=== PATIENT | female | born 1950 | race African-American/Black ===

== ENCOUNTER 2018-07-16 14:18 | Inpatient (IN) | payer MEDICARE, MEDICAID ==
[~2018-07-16] VITALS: Ht 162.6 cm; Wt 119.7 kg
[~2018-07-16 14:18] MED LIST: ALPR0.5T PO; AMLO5TAB88 PO; ASPI-1079 PO; ATOR20TA PO; BREO ELLIPTA INH; CALCIUM CARBONATE; DOCU250C89 PO; FURO80TA87 PO; GUAI473S55 PO; HYDR-4009 PO; INCRUSE INH; LEVA15HF4 IH; LEVVL SQ; LIRA0.6P2 SUBCUT; PREDNISONE PO; PREN-88 PO; VALS80TA2 PO
[2018-07-16] MEDS ORDERED: IPRATROPIUM BROMIDE (0.02%) 0.5MG/2.5ML NEB HHN STA (17:04)
[2018-07-16] MEDS ORDERED: ALBUTEROL (0.083%) 2.5MG/3ML NEB HHN STA (17:04)
[2018-07-16] MEDS ORDERED: METHYLPREDNISOLONE SOD SUCC 125 MG/2 ML VIAL IV STA (17:04)
[2018-07-16] MEDS ORDERED: LEVOFLOXACIN 750MG PREMIX 150 ML IV ONE (17:15)
[2018-07-16] MEDS ORDERED: SODIUM CHLORIDE 0.9% 1000ML BAG (SEPSIS BOLUS) IV ONE (17:15)
[2018-07-16] MEDS ORDERED: ASPIRIN 81MG TABLET PO ONE (17:15)
[2018-07-16 17:47] LABS: BASOPHILS % 0.9 % (0.0-2.0); EOSINOPHILS % 1.8 % (0.0-5.0); HEMATOCRIT. 37.9 % (36.0-48.0); HEMOGLOBIN. 12.8 g/dL (12.0-16.0); LYMPHOCYTES % 39.2 % (20.0-50.0); MEAN CORPUSCULAR HEMOGLOBIN 27.4 pg (28.0-32.0); MEAN CORPUSCULAR VOLUME 81.4 fL (81.0-99.0); MEAN PLATELET VOLUME 8.1 fl (7.4-10.4); MONOCYTES % 6.4 % (2.0-8.0); NEUTROPHILS % 51.7 % (40.0-76.0); PLATELET 277 x1000/uL (130-400); RED BLOOD CELL COUNT 4.66 mill/uL (4.2-5.4); RED CELL DISTRIBUTION WIDTH 13.4 % (11.6-14.6)
[2018-07-16 17:52] LABS: PARTIAL THROMBOPLASTIN TIME 23.3 sec (23.4-31.0); PROTHROMBIN TIME 10.4 sec (9.1-11.1)
[2018-07-16 17:56] LABS: CHLORIDE 104 mEq/L (98-107)
[2018-07-16] MEDS: NITROGLYCERIN 0.4MG TABLET SL SL PRN ×2 (18:32→20:30)
[2018-07-16 18:43] LABS: CLARITY URINE CLEAR (CLEAR); COLOR URINE YELLOW (YELLOW); KETONES URINE NEGATIVE (NEGATIVE); LEUKOCYTE ESTERASE URINE NEGATIVE (NEGATIVE); NITRITE URINE NEGATIVE (NEGATIVE); OCCULT BLOOD URINE NEGATIVE (NEGATIVE); PH URINE 7.5 (4.5-8.0); PROTEIN URINE NEGATIVE (NEGATIVE); SPECIFIC GRAVITY URINE 1.005 (1.005-1.030); UROBILINOGEN URINE 0.2 E.U./dL (0.2-1.0)
[2018-07-17] MEDS: NITROGLYCERIN 0.4MG TABLET SL SL PRN (03:46)
[2018-07-17] MEDS ORDERED: HYDROCODONE/ACETAMINOPHEN 5/325MG TABLET PO ONE (04:00)
[2018-07-17 09:00] VITALS: BP 161/76
[2018-07-17] MEDS ORDERED: ACETAMINOPHEN 325MG TABLET PO PRN (09:30)
[2018-07-17] MEDS ORDERED: CLONIDINE 0.1MG TABLET PO PRN (09:30)
[2018-07-17] MEDS: IPRATROPIUM/ALBUTEROL 0.5-3(2.5)MG/3ML NEB HHN SCH ×4 (10:38→20:56)
[2018-07-17 10:42] LABS: BG BASE EXCESS -1.2 mmol/L (-2.0-2.0); BG CARBOXYHEMOGLOBIN 0.1 % (0.5-1.5); BG DEOXYHEMOGLOBIN 1.8 % (0.0-5.0); BG FRACTION INSPIRED OXYGEN 28; BG HCO3 ACT 21.7 mmol/L (22.0-26.0); BG METHEMOGLOBIN 0.2 % (0.0-1.5); BG OXYGEN SATURATION 98.2 % (92.0-98.5); BG OXYHEMOGLOBIN 97.9 % (94.0-97.0); BG PCO2 30.6 mmHg (35.0-45.0); BG PH 7.468 (7.350-7.450); BG PO2 115.2 mmHg (75.0-100.0); BG SAMPLE SITE RIGHT RADIAL; BG VENT MODE NASAL CANNULA
[2018-07-17] MEDS ORDERED: LEVOFLOXACIN 500MG PREMIX 100 ML IV SCH (11:00)
[2018-07-17] MEDS ORDERED: TRAMADOL 50MG TABLET PO PRN (12:15)
[2018-07-17] MEDS: CHOLECALCIFEROL (D3) 1000 UNIT TABLET PO SCH (12:46)
[2018-07-17] MEDS: AMLODIPINE 5MG TABLET PO SCH (12:47)
[2018-07-17] MEDS: LOSARTAN POTASSIUM 50 MG TABLET PO SCH (12:47)
[2018-07-17] MEDS: ENOXAPARIN 30MG/0.3ML SYR SUBCUT SCH ×2 (12:48→21:02)
[2018-07-17] MEDS: TRAMADOL 50MG TABLET PO PRN ×2 (12:49→21:04)
[2018-07-17 16:00] VITALS: BP 108/51
[2018-07-17] MEDS ORDERED: METHYLPREDNISOLONE SOD SUCC 125 MG/2 ML VIAL IV NR (16:00)
[2018-07-17 17:06] VITALS: BP 105/51
[2018-07-17 20:00] VITALS: BP 125/54
[2018-07-17] MEDS: ATORVASTATIN CALCIUM 20MG TABLET PO SCH (21:02)
[2018-07-17] MEDS: ZOLPIDEM TARTRATE 5MG TABLET PO PRN (21:19)
[2018-07-17] MEDS ORDERED: INSULIN GLARGINE UD 100 UNITS/ML SYR SUBCUT SCH (22:00)
[2018-07-18] VITALS: BP 126/62
[2018-07-18] MEDS: METHYLPREDNISOLONE SOD SUCC 40 MG/ML VIAL IV SCH ×3 (00:45→15:53)
[2018-07-18] MEDS: IPRATROPIUM/ALBUTEROL 0.5-3(2.5)MG/3ML NEB HHN SCH ×6 (00:50→21:22)
[2018-07-18 04:00] VITALS: BP 120/52
[2018-07-18] MEDS ORDERED: DEXTROSE 50% WATER 50ML SYRINGE IV PRN ×2 (07:30→13:45)
[2018-07-18] MEDS: INSULIN LISPRO 100 UNITS/ML SUBCUT SCH ×4 (07:50→20:41)
[2018-07-18 08:00] VITALS: BP 138/55
[2018-07-18] MEDS: CHOLECALCIFEROL (D3) 1000 UNIT TABLET PO SCH (09:23)
[2018-07-18] MEDS: AMLODIPINE 5MG TABLET PO SCH (09:24)
[2018-07-18] MEDS: LOSARTAN POTASSIUM 50 MG TABLET PO SCH (09:25)
[2018-07-18] MEDS: ENOXAPARIN 30MG/0.3ML SYR SUBCUT SCH ×2 (09:26→20:41)
[2018-07-18] MEDS: TRAMADOL 50MG TABLET PO PRN ×2 (10:05→14:26)
[2018-07-18 12:00] VITALS: BP 169/72
[2018-07-18] MEDS: LEVOFLOXACIN 500MG TABLET PO SCH (12:18)
[2018-07-18] MEDS: BLOOD SUGAR DIAGNOSTIC STRIP TEST SCH ×3 (12:19→20:32)
[2018-07-18] MEDS ORDERED: POTASSIUM CHLORIDE 20MEQ TABLET SR PO NR (14:00)
[2018-07-18] MEDS: POLYETHYLENE GLYCOL 3350 (17GM) 1 DOSE PACK PO PRN (15:52)
[2018-07-18 16:00] VITALS: BP 143/69
[2018-07-18] MEDS ORDERED: BLOOD SUGAR DIAGNOSTIC STRIP TEST SCH (17:20)
[2018-07-18 20:27] VITALS: BP 144/74
[2018-07-18] MEDS: ATORVASTATIN CALCIUM 20MG TABLET PO SCH (20:41)
[2018-07-18] MEDS ORDERED: INSULIN GLARGINE UD 100 UNITS/ML SYR SUBCUT SCH (22:00)
[2018-07-18] MEDS: ZOLPIDEM TARTRATE 5MG TABLET PO PRN (22:09)
[2018-07-19] VITALS (7 sets, daily range): BP systolic 129–156; BP diastolic 55–81
[2018-07-19] MEDS: METHYLPREDNISOLONE SOD SUCC 40 MG/ML VIAL IV SCH ×3 (00:30→17:12)
[2018-07-19] MEDS: IPRATROPIUM/ALBUTEROL 0.5-3(2.5)MG/3ML NEB HHN SCH ×6 (01:21→20:54)
[2018-07-19 06:28] LABS: CHLORIDE 105 mEq/L (98-107)
[2018-07-19 06:39] LABS: BASOPHILS % 0.1 % (0.0-2.0); HEMATOCRIT. 32.6 % (36.0-48.0); HEMOGLOBIN. 10.7 g/dL (12.0-16.0); MEAN CORPUSCULAR HEMOGLOBIN 27.3 pg (28.0-32.0); MEAN PLATELET VOLUME 8.7 fl (7.4-10.4); MONOCYTES % 2.6 % (2.0-8.0); NEUTROPHILS % 85.3 % (40.0-76.0); PLATELET 220 x1000/uL (130-400); RED BLOOD CELL COUNT 3.92 mill/uL (4.2-5.4); RED CELL DISTRIBUTION WIDTH 13.8 % (11.6-14.6)
[2018-07-19] MEDS: BLOOD SUGAR DIAGNOSTIC STRIP TEST SCH ×4 (07:20→20:56)
[2018-07-19] MEDS: INSULIN LISPRO 100 UNITS/ML SUBCUT SCH ×4 (08:49→20:57)
[2018-07-19] MEDS: LOSARTAN POTASSIUM 50 MG TABLET PO SCH (08:53)
[2018-07-19] MEDS: CHOLECALCIFEROL (D3) 1000 UNIT TABLET PO SCH (08:58)
[2018-07-19] MEDS: GUAIFENESIN 600MG ER TABLET PO SCH ×2 (08:58→20:56)
[2018-07-19] MEDS: AMLODIPINE 5MG TABLET PO SCH (09:04)
[2018-07-19] MEDS: ENOXAPARIN 30MG/0.3ML SYR SUBCUT SCH ×2 (09:05→20:56)
[2018-07-19 09:17] LABS: BG BASE EXCESS -1.1 mmol/L (-2.0-2.0); BG CARBOXYHEMOGLOBIN 0.2 % (0.5-1.5); BG DEOXYHEMOGLOBIN 2.2 % (0.0-5.0); BG METHEMOGLOBIN 0.3 % (0.0-1.5); BG OXYGEN SATURATION 97.8 % (92.0-98.5); BG OXYHEMOGLOBIN 97.3 % (94.0-97.0); BG PCO2 36.2 mmHg (35.0-45.0); BG PH 7.421 (7.350-7.450); BG PO2 106.8 mmHg (75.0-100.0); BG SAMPLE SITE RIGHT RADIAL; BG TOTAL HEMOGLOBIN 11.8 g/dL (12.0-18.0); BG VENT MODE NASAL CANNULA
[2018-07-19] MEDS: LEVOFLOXACIN 500MG TABLET PO SCH (10:31)
[2018-07-19] MEDS: INSULIN GLARGINE UD 100 UNITS/ML SYR SUBCUT SCH ×2 (10:34→21:02)
[2018-07-19] MEDS: TRAMADOL 50MG TABLET PO PRN ×2 (10:35→21:38)
[2018-07-19] MEDS: POLYETHYLENE GLYCOL 3350 (17GM) 1 DOSE PACK PO PRN (18:58)
[2018-07-19] MEDS: ATORVASTATIN CALCIUM 20MG TABLET PO SCH (20:56)
[2018-07-19] MEDS: ZOLPIDEM TARTRATE 5MG TABLET PO PRN (22:13)
[2018-07-20] MEDS: METHYLPREDNISOLONE SOD SUCC 40 MG/ML VIAL IV SCH ×4 (00:23→23:00)
[2018-07-20 04:00] VITALS: BP 148/76
[2018-07-20] MEDS: IPRATROPIUM/ALBUTEROL 0.5-3(2.5)MG/3ML NEB HHN SCH ×5 (05:03→21:17)
[2018-07-20] MEDS: BLOOD SUGAR DIAGNOSTIC STRIP TEST SCH ×4 (06:20→20:46)
[2018-07-20] MEDS: POLYETHYLENE GLYCOL 3350 (17GM) 1 DOSE PACK PO PRN ×3 (06:31→20:37)
[2018-07-20 07:04] LABS: CHLORIDE 105 mEq/L (98-107)
[2018-07-20 08:01] VITALS: BP 165/56
[2018-07-20] MEDS: INSULIN LISPRO 100 UNITS/ML SUBCUT SCH ×4 (08:27→20:39)
[2018-07-20] MEDS: ENOXAPARIN 30MG/0.3ML SYR SUBCUT SCH ×2 (08:28→20:37)
[2018-07-20] MEDS: CHOLECALCIFEROL (D3) 1000 UNIT TABLET PO SCH (08:28)
[2018-07-20] MEDS: AMLODIPINE 5MG TABLET PO SCH (08:28)
[2018-07-20] MEDS: LOSARTAN POTASSIUM 50 MG TABLET PO SCH (08:28)
[2018-07-20] MEDS: GUAIFENESIN 600MG ER TABLET PO SCH ×2 (08:29→20:37)
[2018-07-20] MEDS: LEVOFLOXACIN 500MG TABLET PO SCH (10:24)
[2018-07-20] MEDS: INSULIN GLARGINE UD 100 UNITS/ML SYR SUBCUT SCH ×2 (10:27→21:08)
[2018-07-20] MEDS: TRAMADOL 50MG TABLET PO PRN ×3 (10:30→21:05)
[2018-07-20 11:37] VITALS: BP 151/71
[2018-07-20 12:51] LABS: CHLORIDE 101 mEq/L (98-107)
[2018-07-20 16:06] VITALS: BP 157/67
[2018-07-20 20:00] VITALS: BP 159/49
[2018-07-20] MEDS: ATORVASTATIN CALCIUM 20MG TABLET PO SCH (20:37)
[2018-07-20] MEDS: ZOLPIDEM TARTRATE 5MG TABLET PO PRN (22:53)
[2018-07-21] VITALS: BP 149/74
[2018-07-21 04:00] VITALS: BP 160/64
[2018-07-21] MEDS: IPRATROPIUM/ALBUTEROL 0.5-3(2.5)MG/3ML NEB HHN SCH ×6 (04:22→21:05)
[2018-07-21] MEDS: BLOOD SUGAR DIAGNOSTIC STRIP TEST SCH ×4 (06:28→20:39)
[2018-07-21] MEDS: INSULIN LISPRO 100 UNITS/ML SUBCUT SCH ×4 (07:50→20:47)
[2018-07-21 08:00] VITALS: BP 152/60
[2018-07-21] MEDS: METHYLPREDNISOLONE SOD SUCC 40 MG/ML VIAL IV SCH ×2 (09:17→17:21)
[2018-07-21] MEDS: MAGNESIUM HYDROXIDE 400MG/5ML 30ML UDC PO PRN (09:17)
[2018-07-21] MEDS: LOSARTAN POTASSIUM 50 MG TABLET PO SCH (09:19)
[2018-07-21] MEDS: GUAIFENESIN 600MG ER TABLET PO SCH ×2 (09:19→20:38)
[2018-07-21] MEDS: CHOLECALCIFEROL (D3) 1000 UNIT TABLET PO SCH (09:19)
[2018-07-21] MEDS: AMLODIPINE 5MG TABLET PO SCH (09:20)
[2018-07-21] MEDS: ENOXAPARIN 30MG/0.3ML SYR SUBCUT SCH ×2 (09:21→20:48)
[2018-07-21] MEDS: TRAMADOL 50MG TABLET PO PRN ×3 (09:21→20:46)
[2018-07-21] MEDS: INSULIN GLARGINE UD 100 UNITS/ML SYR SUBCUT SCH ×2 (10:55→22:02)
[2018-07-21 12:00] VITALS: BP 156/69
[2018-07-21] MEDS: LEVOFLOXACIN 500MG TABLET PO SCH (12:55)
[2018-07-21 16:00] VITALS: BP 149/62
[2018-07-21 20:13] VITALS: BP 135/58
[2018-07-21] MEDS: ATORVASTATIN CALCIUM 20MG TABLET PO SCH (20:38)
[2018-07-21] MEDS: POLYETHYLENE GLYCOL 3350 (17GM) 1 DOSE PACK PO PRN (20:45)
[2018-07-21] MEDS: ZOLPIDEM TARTRATE 5MG TABLET PO PRN (22:38)
[2018-07-22 00:19] VITALS: BP 137/58
[2018-07-22] MEDS: METHYLPREDNISOLONE SOD SUCC 40 MG/ML VIAL IV SCH ×4 (00:31→23:56)
[2018-07-22 04:00] VITALS: BP 131/42
[2018-07-22] MEDS: BLOOD SUGAR DIAGNOSTIC STRIP TEST SCH ×4 (06:30→21:53)
[2018-07-22] MEDS: INSULIN LISPRO 100 UNITS/ML SUBCUT SCH ×4 (08:31→21:59)
[2018-07-22] MEDS: GUAIFENESIN 600MG ER TABLET PO SCH ×2 (09:06→21:52)
[2018-07-22] MEDS: LOSARTAN POTASSIUM 50 MG TABLET PO SCH (09:07)
[2018-07-22] MEDS: CHOLECALCIFEROL (D3) 1000 UNIT TABLET PO SCH (09:07)
[2018-07-22] MEDS: AMLODIPINE 5MG TABLET PO SCH (09:07)
[2018-07-22] MEDS: ENOXAPARIN 30MG/0.3ML SYR SUBCUT SCH ×2 (09:08→21:53)
[2018-07-22] MEDS: MAGNESIUM HYDROXIDE 400MG/5ML 30ML UDC PO PRN (09:19)
[2018-07-22] MEDS: TRAMADOL 50MG TABLET PO PRN ×2 (09:19→22:01)
[2018-07-22] MEDS: IPRATROPIUM/ALBUTEROL 0.5-3(2.5)MG/3ML NEB HHN SCH ×4 (09:25→21:29)
[2018-07-22] MEDS: LEVOFLOXACIN 500MG TABLET PO SCH (10:46)
[2018-07-22] MEDS: INSULIN GLARGINE UD 100 UNITS/ML SYR SUBCUT SCH ×2 (10:49→22:00)
[2018-07-22 12:00] VITALS: BP 150/62
[2018-07-22 16:00] VITALS: BP 147/65
[2018-07-22 16:10] VITALS: BP 150/62
[2018-07-22 20:20] VITALS: BP 136/58
[2018-07-22] MEDS: ATORVASTATIN CALCIUM 20MG TABLET PO SCH (21:52)
[2018-07-23 00:09] VITALS: BP 102/42
[2018-07-23] MEDS ORDERED: ZOLPIDEM TARTRATE 5MG TABLET PO PRN (00:15)
[2018-07-23] MEDS: METHYLPREDNISOLONE SOD SUCC 40 MG/ML VIAL IV SCH ×4 (00:20→23:14)
[2018-07-23 04:00] VITALS: BP 112/57
[2018-07-23] MEDS: IPRATROPIUM/ALBUTEROL 0.5-3(2.5)MG/3ML NEB HHN SCH ×6 (04:49→21:27)
[2018-07-23] MEDS: BLOOD SUGAR DIAGNOSTIC STRIP TEST SCH ×4 (06:44→21:00)
[2018-07-23] MEDS: GUAIFENESIN 600MG ER TABLET PO SCH ×2 (08:04→21:29)
[2018-07-23 08:05] VITALS: BP 119/53
[2018-07-23] MEDS: AMLODIPINE 5MG TABLET PO SCH (08:05)
[2018-07-23] MEDS: CHOLECALCIFEROL (D3) 1000 UNIT TABLET PO SCH (08:05)
[2018-07-23] MEDS: LOSARTAN POTASSIUM 50 MG TABLET PO SCH (08:05)
[2018-07-23] MEDS: ENOXAPARIN 30MG/0.3ML SYR SUBCUT SCH ×2 (08:06→21:29)
[2018-07-23] MEDS: INSULIN LISPRO 100 UNITS/ML SUBCUT SCH ×4 (08:11→21:30)
[2018-07-23] MEDS ORDERED: PANTOPRAZOLE SODIUM 40 MG/VIAL IV SCH (09:00)
[2018-07-23] MEDS ORDERED: GUAIFENESIN 600MG ER TABLET PO SCH (09:00)
[2018-07-23] MEDS: OMEPRAZOLE 20MG CAPSULE EXTENDED RELEASE PO SCH ×2 (10:17→21:29)
[2018-07-23] MEDS: TRAMADOL 50MG TABLET PO PRN ×2 (10:17→21:46)
[2018-07-23] MEDS: INSULIN GLARGINE UD 100 UNITS/ML SYR SUBCUT SCH ×2 (10:27→21:47)
[2018-07-23] MEDS: LEVOFLOXACIN 500MG TABLET PO SCH (11:29)
[2018-07-23 12:24] VITALS: BP 130/40
[2018-07-23 15:48] VITALS: BP 131/61
[2018-07-23 20:00] VITALS: BP 146/72
[2018-07-23] MEDS: ATORVASTATIN CALCIUM 20MG TABLET PO SCH (21:29)
[2018-07-23] MEDS: ZOLPIDEM TARTRATE 5MG TABLET PO PRN (23:14)
[2018-07-24] VITALS: BP 142/54
[2018-07-24 04:00] VITALS: BP 122/63
[2018-07-24] MEDS: IPRATROPIUM/ALBUTEROL 0.5-3(2.5)MG/3ML NEB HHN SCH ×2 (04:58→07:52)
[2018-07-24 06:02] LABS: BASOPHILS % 0.2 % (0.0-2.0); HEMATOCRIT. 35.2 % (36.0-48.0); HEMOGLOBIN. 11.6 g/dL (12.0-16.0); LYMPHOCYTES % 10.5 % (20.0-50.0); MEAN CORPUSCULAR HEMOGLOBIN 27.4 pg (28.0-32.0); MEAN CORPUSCULAR VOLUME 83.1 fL (81.0-99.0); MEAN PLATELET VOLUME 8.8 fl (7.4-10.4); MONOCYTES % 4.5 % (2.0-8.0); NEUTROPHILS % 84.8 % (40.0-76.0); PLATELET 209 x1000/uL (130-400); RED BLOOD CELL COUNT 4.24 mill/uL (4.2-5.4); RED CELL DISTRIBUTION WIDTH 13.7 % (11.6-14.6)
[2018-07-24] MEDS: BLOOD SUGAR DIAGNOSTIC STRIP TEST SCH ×4 (06:12→21:00)
[2018-07-24] MEDS: OMEPRAZOLE 20MG CAPSULE EXTENDED RELEASE PO SCH (06:12)
[2018-07-24 06:35] LABS: CHLORIDE 107 mEq/L (98-107)
[2018-07-24] MEDS: INSULIN LISPRO 100 UNITS/ML SUBCUT SCH ×4 (07:42→21:31)
[2018-07-24 08:00] VITALS: BP 127/62
[2018-07-24] MEDS: CHOLECALCIFEROL (D3) 1000 UNIT TABLET PO SCH (08:25)
[2018-07-24] MEDS: GUAIFENESIN 600MG ER TABLET PO SCH ×2 (08:26→21:23)
[2018-07-24] MEDS: AMLODIPINE 5MG TABLET PO SCH (08:26)
[2018-07-24] MEDS: LOSARTAN POTASSIUM 50 MG TABLET PO SCH (08:26)
[2018-07-24] MEDS: ENOXAPARIN 30MG/0.3ML SYR SUBCUT SCH ×2 (08:27→21:24)
[2018-07-24] MEDS: UMECLIDINIUM BROMIDE 1 INH BLST.W.DEV IH SCH ×2 (09:00→15:28)
[2018-07-24] MEDS: INSULIN GLARGINE UD 100 UNITS/ML SYR SUBCUT SCH ×2 (10:08→21:32)
[2018-07-24 11:20] VITALS: BP 117/50
[2018-07-24] MEDS: LEVOFLOXACIN 500MG TABLET PO SCH (11:24)
[2018-07-24] MEDS: METHYLPREDNISOLONE SOD SUCC 40 MG/ML VIAL IV SCH ×2 (12:30→23:23)
[2018-07-24] MEDS: TRAMADOL 50MG TABLET PO PRN ×2 (12:31→21:25)
[2018-07-24] MEDS: FLUTICASONE/VILANTEROL 200-25 BLST.W.DEV ORI SCH (13:16)
[2018-07-24] MEDS: IPRATROPIUM/ALBUTEROL 0.5-3(2.5)MG/3ML NEB INH PRN (15:23)
[2018-07-24 20:00] VITALS: BP 123/48
[2018-07-24] MEDS: ALBUTEROL (0.083%) 2.5MG/3ML NEB HHN SCH (20:40)
[2018-07-24] MEDS: ATORVASTATIN CALCIUM 20MG TABLET PO SCH (21:23)
[2018-07-24] MEDS: FAMOTIDINE 20MG TABLET PO SCH (21:30)
[2018-07-24] MEDS: ZOLPIDEM TARTRATE 5MG TABLET PO PRN (23:23)
[2018-07-25] VITALS: BP 122/50
[2018-07-25] MEDS: ALBUTEROL (0.083%) 2.5MG/3ML NEB HHN SCH ×6 (00:49→21:18)
[2018-07-25 04:00] VITALS: BP 124/51
[2018-07-25] MEDS: IPRATROPIUM/ALBUTEROL 0.5-3(2.5)MG/3ML NEB INH PRN (04:40)
[2018-07-25] MEDS: BLOOD SUGAR DIAGNOSTIC STRIP TEST SCH ×4 (06:19→21:52)
[2018-07-25 08:00] VITALS: BP 135/108
[2018-07-25] MEDS: INSULIN LISPRO 100 UNITS/ML SUBCUT SCH ×4 (08:12→21:52)
[2018-07-25] MEDS: FAMOTIDINE 20MG TABLET PO SCH ×2 (09:16→18:30)
[2018-07-25] MEDS: LOSARTAN POTASSIUM 50 MG TABLET PO SCH (09:16)
[2018-07-25] MEDS: CHOLECALCIFEROL (D3) 1000 UNIT TABLET PO SCH (09:16)
[2018-07-25] MEDS: GUAIFENESIN 600MG ER TABLET PO SCH ×2 (09:18→21:50)
[2018-07-25] MEDS: AMLODIPINE 5MG TABLET PO SCH (09:18)
[2018-07-25] MEDS: UMECLIDINIUM BROMIDE 1 INH BLST.W.DEV IH SCH (09:19)
[2018-07-25] MEDS: FLUTICASONE/VILANTEROL 200-25 BLST.W.DEV ORI SCH (09:19)
[2018-07-25] MEDS: ENOXAPARIN 30MG/0.3ML SYR SUBCUT SCH ×2 (09:20→21:51)
[2018-07-25] MEDS: INSULIN GLARGINE UD 100 UNITS/ML SYR SUBCUT SCH ×2 (11:30→21:52)
[2018-07-25 12:09] VITALS: BP 123/68
[2018-07-25] MEDS: TRAMADOL 50MG TABLET PO PRN ×2 (12:43→19:52)
[2018-07-25 16:02] VITALS: BP 141/77
[2018-07-25] MEDS ORDERED: PREDNISONE 20MG TABLET PO SCH (17:00)
[2018-07-25] MEDS: DILTIAZEM HCL 30MG TABLET PO SCH (18:30)
[2018-07-25 20:00] VITALS: BP 117/55
[2018-07-25] MEDS: ATORVASTATIN CALCIUM 20MG TABLET PO SCH (21:50)
[2018-07-25] MEDS: ZOLPIDEM TARTRATE 5MG TABLET PO PRN (22:46)
[2018-07-26] VITALS: BP 121/39
[2018-07-26] MEDS: ALBUTEROL (0.083%) 2.5MG/3ML NEB HHN SCH ×6 (00:01→20:33)
[2018-07-26 04:00] VITALS: BP 124/46
[2018-07-26] MEDS: BLOOD SUGAR DIAGNOSTIC STRIP TEST SCH ×4 (07:20→21:14)
[2018-07-26 07:45] LABS: BASOPHILS % 0.1 % (0.0-2.0); HEMATOCRIT. 34.5 % (36.0-48.0); HEMOGLOBIN. 11.2 g/dL (12.0-16.0); LYMPHOCYTES % 11.3 % (20.0-50.0); MEAN PLATELET VOLUME 8.7 fl (7.4-10.4); MONOCYTES % 4.3 % (2.0-8.0); NEUTROPHILS % 84.3 % (40.0-76.0); PLATELET 213 x1000/uL (130-400); RED BLOOD CELL COUNT 4.15 mill/uL (4.2-5.4); RED CELL DISTRIBUTION WIDTH 13.9 % (11.6-14.6)
[2018-07-26] MEDS: IPRATROPIUM/ALBUTEROL 0.5-3(2.5)MG/3ML NEB INH PRN (08:04)
[2018-07-26 08:15] VITALS: BP 126/49
[2018-07-26] MEDS: INSULIN LISPRO 100 UNITS/ML SUBCUT SCH ×4 (08:59→21:14)
[2018-07-26] MEDS: PREDNISONE 20MG TABLET PO SCH (09:00)
[2018-07-26] MEDS: GUAIFENESIN 600MG ER TABLET PO SCH ×2 (09:01→21:18)
[2018-07-26] MEDS: CHOLECALCIFEROL (D3) 1000 UNIT TABLET PO SCH (09:01)
[2018-07-26] MEDS: FAMOTIDINE 20MG TABLET PO SCH ×2 (09:01→18:55)
[2018-07-26] MEDS: LOSARTAN POTASSIUM 50 MG TABLET PO SCH (09:01)
[2018-07-26] MEDS: FLUTICASONE/VILANTEROL 200-25 BLST.W.DEV ORI SCH (09:02)
[2018-07-26] MEDS: DILTIAZEM HCL 30MG TABLET PO SCH ×2 (09:02→18:55)
[2018-07-26] MEDS: UMECLIDINIUM BROMIDE 1 INH BLST.W.DEV IH SCH (09:02)
[2018-07-26] MEDS: ENOXAPARIN 30MG/0.3ML SYR SUBCUT SCH ×2 (09:02→21:13)
[2018-07-26 09:11] LABS: BG BASE EXCESS 1.1 mmol/L (-2.0-2.0); BG CARBOXYHEMOGLOBIN 0.3 % (0.5-1.5); BG DEOXYHEMOGLOBIN 3.5 % (0.0-5.0); BG FRACTION INSPIRED OXYGEN 21; BG HCO3 ACT 25.1 mmol/L (22.0-26.0); BG METHEMOGLOBIN 0.3 % (0.0-1.5); BG OXYGEN SATURATION 96.5 % (92.0-98.5); BG OXYHEMOGLOBIN 95.9 % (94.0-97.0); BG PCO2 37.9 mmHg (35.0-45.0); BG PH 7.439 (7.350-7.450); BG PO2 86.8 mmHg (75.0-100.0); BG SAMPLE SITE RIGHT RADIAL; BG TOTAL HEMOGLOBIN 12.7 g/dL (12.0-18.0); BG VENT MODE ROOM AIR
[2018-07-26 09:24] LABS: CHLORIDE 105 mEq/L (98-107)
[2018-07-26 09:43] LABS: T4 FREE 0.99 ng/dL (0.76-1.46)
[2018-07-26 12:32] VITALS: BP 134/63
[2018-07-26] MEDS: TRAMADOL 50MG TABLET PO PRN ×2 (12:49→21:13)
[2018-07-26] MEDS ORDERED: LIDOCAINE HCL/PF 1% 2ML VIAL ONE (15:28)
[2018-07-26 17:13] VITALS: BP 163/69
[2018-07-26 20:00] VITALS: BP 138/85
[2018-07-26] MEDS: ATORVASTATIN CALCIUM 20MG TABLET PO SCH (21:13)
[2018-07-26] MEDS ORDERED: INSULIN GLARGINE UD 100 UNITS/ML SYR SUBCUT SCH (22:00)
[2018-07-26] MEDS: ZOLPIDEM TARTRATE 5MG TABLET PO PRN (23:10)
[2018-07-27] VITALS: BP 135/55
[2018-07-27 04:00] VITALS: BP 118/50
[2018-07-27] MEDS: ALBUTEROL (0.083%) 2.5MG/3ML NEB HHN SCH ×3 (05:21→12:36)
[2018-07-27] MEDS: BLOOD SUGAR DIAGNOSTIC STRIP TEST SCH ×2 (06:41→12:58)
[2018-07-27] MEDS: INSULIN LISPRO 100 UNITS/ML SUBCUT SCH ×2 (07:50→13:09)
[2018-07-27 08:53] VITALS: BP 138/57
[2018-07-27] MEDS: GUAIFENESIN 600MG ER TABLET PO SCH (09:33)
[2018-07-27] MEDS: DILTIAZEM HCL 30MG TABLET PO SCH (09:33)
[2018-07-27] MEDS: PREDNISONE 20MG TABLET PO SCH (09:33)
[2018-07-27] MEDS: LOSARTAN POTASSIUM 50 MG TABLET PO SCH (09:34)
[2018-07-27] MEDS: CHOLECALCIFEROL (D3) 1000 UNIT TABLET PO SCH (09:34)
[2018-07-27] MEDS: FAMOTIDINE 20MG TABLET PO SCH (09:35)
[2018-07-27] MEDS: ENOXAPARIN 30MG/0.3ML SYR SUBCUT SCH (09:39)
[2018-07-27] MEDS: TRAMADOL 50MG TABLET PO PRN (11:02)
[2018-07-27 12:38] VITALS: BP 118/53
[2018-07-27 14:50] VITALS: BP 118/53
== END 2018-07-27 15:31 | disposition home or self-care (01) | DRG 189 ==
LOC: EDBEDREQ 18:40 → ER 21:16 → 6WST 21:21 → ENRESERV 07-17 08:06
PROVIDERS: ADMIT Internal Medicine Pulmonary Disease; ATTEND Internal Medicine Pulmonary Disease
DX: J96.01 Acute respiratory failure with hypoxia (principal); J45.901 Unspecified asthma with (acute) exacerbation; J44.1 Chronic obstructive pulmonary disease with (acute) exacerbation; Z68.42 Body mass index [BMI] 45.0-49.9, adult; E11.9 Type 2 diabetes mellitus without complications; E66.9 Obesity, unspecified; E78.5 Hyperlipidemia, unspecified; G47.30 Sleep apnea, unspecified; F31.9 Bipolar disorder, unspecified; I10 Essential (primary) hypertension; M19.90 Unspecified osteoarthritis, unspecified site; Z96.653 Presence of artificial knee joint, bilateral; E79.0 Hyperuricemia without signs of inflammatory arthritis and tophaceous disease; E11.65 Type 2 diabetes mellitus with hyperglycemia; Z60.2 Problems related to living alone; F41.9 Anxiety disorder, unspecified; I48.91 Unspecified atrial fibrillation; T38.0X5A Adverse effect of glucocorticoids and synthetic analogues, initial encounter; Z80.3 Family history of malignant neoplasm of breast; Z90.710 Acquired absence of both cervix and uterus; Z80.1 Family history of malignant neoplasm of trachea, bronchus and lung; Z79.899 Other long term (current) drug therapy; Z79.01 Long term (current) use of anticoagulants; Z79.82 Long term (current) use of aspirin; Z79.4 Long term (current) use of insulin; R19.7 Diarrhea, unspecified
CPT/HCPCS: 36415; 36600; 71045; 80048; 82375; 82805; 82962; 83036; 83605; 83735; 83880; 84145; 84439; 84443; 84484; 87070; 87804; 93005; 93970; 94640; 94644; 96374; 97162; 99285; C9113; J1650; J1815; J1956; J2920; J2930; J3490; J7030; J7512; J7611; J7620

== ENCOUNTER 2019-06-10 14:15 | Emergency (ER) | payer MEDICARE, MEDICAID ==
[~2019-06-10] VITALS: Ht 160 cm; Wt 102.0 kg
[~2019-06-10 14:15] MED LIST changes: -ALPR0.5T PO; -FURO80TA87 PO; -HYDR-4009 PO; -LEVVL SQ; -LIRA0.6P2 SUBCUT; -VALS80TA2 PO
[2019-06-10] MEDS ORDERED: ALBUTEROL (0.083%) 2.5MG/3ML NEB HHN STA (15:26)
[2019-06-10] MEDS ORDERED: IPRATROPIUM BROMIDE (0.02%) 0.5MG/2.5ML NEB HHN STA (15:26)
[2019-06-10] MEDS ORDERED: MAGNESIUM 2 G PREMIX 50 ML IV STA (15:26)
[2019-06-10 16:32] LABS: EOSINOPHILS % 6.1 % (0.0-5.0); HEMATOCRIT. 33.9 % (36.0-48.0); HEMOGLOBIN. 11.3 g/dL (12.0-16.0); LYMPHOCYTES % 34.1 % (20.0-50.0); MEAN CORPUSCULAR VOLUME 81.5 fL (81.0-99.0); MONOCYTES % 8.1 % (2.0-8.0); NEUTROPHILS % 50.7 % (40.0-76.0); PLATELET 307 x1000/uL (130-400); RED BLOOD CELL COUNT 4.16 mill/uL (4.2-5.4); RED CELL DISTRIBUTION WIDTH 14.2 % (11.6-14.6)
[2019-06-10 16:38] LABS: PROTHROMBIN TIME 10.7 sec (9.6-11.0)
[2019-06-10 16:40] LABS: CHLORIDE 108 mEq/L (98-107)
[2019-06-10 17:12] LABS: CLARITY URINE CLEAR (CLEAR); COLOR URINE YELLOW (YELLOW); KETONES URINE NEGATIVE (NEGATIVE); LEUKOCYTE ESTERASE URINE NEGATIVE (NEGATIVE); NITRITE URINE NEGATIVE (NEGATIVE); OCCULT BLOOD URINE NEGATIVE (NEGATIVE); PROTEIN URINE NEGATIVE (NEGATIVE); SPECIFIC GRAVITY URINE 1.004 (1.005-1.030); UROBILINOGEN URINE 0.2 E.U./dL (0.2-1.0)
[2019-06-10] MEDS ORDERED: HYDROCODONE/ACETAMINOPHEN 5/325MG TABLET PO ONE (18:30)
[2019-06-10 19:00] VITALS: BP 129/84
== END 2019-06-10 19:45 | disposition home or self-care (01) ==
LOC: ER 14:15
DX: S16.1XXA Strain of muscle, fascia and tendon at neck level, initial encounter (principal); S89.81XA Other specified injuries of right lower leg, initial encounter; J45.901 Unspecified asthma with (acute) exacerbation; M25.511 Pain in right shoulder; M25.551 Pain in right hip; I10 Essential (primary) hypertension; E11.9 Type 2 diabetes mellitus without complications; Z79.899 Other long term (current) drug therapy; Z79.82 Long term (current) use of aspirin; V49.9XXA Car occupant (driver) (passenger) injured in unspecified traffic accident, initial encounter; Y93.89 Activity, other specified; Y92.89 Other specified places as the place of occurrence of the external cause; Y99.8 Other external cause status
CPT/HCPCS: 36415; 71045; 72125; 73030; 73502; 73562; 80053; 81003; 83605; 83880; 84145; 84484; 85025; 85610; 87040; 87086; 93005; 94644; 96365; 99285; J3475; J7611

== ENCOUNTER 2023-02-27 12:19 | Emergency (ER) | payer MEDICARE, MEDICAID ==
[~2023-02-27] VITALS: Ht 167.6 cm; Wt 84.0 kg
[2023-02-27 12:22] VITALS: O2SAT 98
[2023-02-27] MEDS ORDERED: KETOROLAC 60MG/2ML VIAL IM ONE (13:30)
[2023-02-27] MEDS ORDERED: HYDROCODONE/ACETAMINOPHEN 10/325MG TABLET PO ONE (13:30)
[2023-02-27 15:09] LABS: BASOPHILS % 0.6 % (0.0-2.0); EOSINOPHILS % 1.5 % (0.0-5.0); HEMATOCRIT. 31.6 % (36.0-48.0); HEMOGLOBIN. 10.5 g/dL (12.0-16.0); LYMPHOCYTES % 19.6 % (20.0-50.0); MEAN CORPUSCULAR HEMOGLOBIN 29.1 pg (28.0-32.0); MEAN CORPUSCULAR HGB CONC 33.1 g/dL (31.0-37.0); MEAN CORPUSCULAR VOLUME 87.9 fL (81.0-99.0); MEAN PLATELET VOLUME 7.2 fl (7.4-10.4); MONOCYTES % 10.7 % (2.0-8.0); NEUTROPHILS % 67.6 % (40.0-76.0); PLATELET 247 x1000/uL (130-400); RED BLOOD CELL COUNT 3.59 mill/uL (4.2-5.4); RED CELL DISTRIBUTION WIDTH 14.3 % (11.6-14.6); WHITE BLOOD COUNT 5.7 x1000/uL (4.5-11.0)
[2023-02-27 15:43] LABS: CHLORIDE 107 mEq/L (98-107); INDEX HEMOLYSI 3 (1-3); INDEX ICTERIC 1 (1-4); INDEX LIPEMIC 1 (1-3); SODIUM 139 mEq/L (136-145)
[2023-02-27 16:01] LABS: ALANINE AMINOTRANSFERASE 24 IU/L (13-61); ALBUMIN 3.3 g/dL (3.4-5.0); ASPARTATE AMINOTRANSFERASE 31 IU/L (15-37); BILIRUBIN TOTAL 0.2 mg/dL (0.1-1.0); CALCIUM 9.5 mg/dL (8.5-10.1); CARBON DIOXIDE 23 mEq/L (21-32); CREATININE 1.2 mg/dL (0.6-1.3); GLUCOSE 126 mg/dL (70-105); NT PRO B-TYPE NATRIURETIC PEP 11 pg/mL (5-125); PROTEIN TOTAL 8.5 g/dL (6.0-8.3); TROPONIN I HIGH SENSITIVITY 7 ng/L (<54); UREA NITROGEN BLOOD 16 mg/dL (7-21)
[2023-02-27] MEDS ORDERED: ACET-2708 MT (16:26)
[2023-02-27 16:27] VITALS: BP 136/68; PULSE 77; RESP 18; TEMP 98.2
== END 2023-02-27 16:35 | disposition home or self-care (01) ==
LOC: ER 13:46
DX: R07.89 Other chest pain (principal); M25.562 Pain in left knee; M25.561 Pain in right knee; J45.909 Unspecified asthma, uncomplicated; E11.9 Type 2 diabetes mellitus without complications; I10 Essential (primary) hypertension; Z79.899 Other long term (current) drug therapy; Z85.118 Personal history of other malignant neoplasm of bronchus and lung; Z98.890 Other specified postprocedural states; V99.XXXA Unspecified transport accident, initial encounter; Y93.89 Activity, other specified; Y92.89 Other specified places as the place of occurrence of the external cause; Y99.8 Other external cause status
CPT/HCPCS: 99285; 71045; 80053; 83880; 85025; 84484; 36415; 73562; 93005; 96372; J1885